=== PATIENT | female | born 1935 | race American Indian/Alaskan Native ===

== ENCOUNTER → 2016-09-01 | Outpatient (CLI) | payer MEDICARE, OTHER, BC ==
[2016-09-01 14:36] LABS: CHLORIDE,CL 110 mmol/L (98-110); SODIUM,NA 144 mmol/L (136-146)
== END | disposition home or self-care (01) ==
LOC: MW.CHFP 13:44
PROVIDERS: ATTEND Emergency Medicine
DX: I10 Essential (primary) hypertension (principal); R73.09 Other abnormal glucose; R73.03 Prediabetes; M26.629 Arthralgia of temporomandibular joint, unspecified side; E78.00 Pure hypercholesterolemia, unspecified
CPT/HCPCS: 36415; 80048; 83036; 99214

== ENCOUNTER 2017-06-01 18:19 | Emergency (ER) | payer MEDICARE, BC ==
--- NOTE | 2017-06-01 19:06 | EDM.PDOC ---
ED HPI GENERAL MEDICAL PROBLEM - General Chief Complaint: Headache Stated Complaint: PT HAS HEADACHE Time Seen by Provider: 06/01/17 19:04 Source of Information: Reports: Patient - History of Present Illness INITIAL COMMENTS - FREE TEXT/NARRATIVE: HISTORY AND PHYSICAL: History of present illness: [Patient presents with headache and fatigue increasing over the last week becoming more bothersome from the headache standpoint over the last few days she rates a 6 out of 10 and is in no distress no fever nausea vomiting chills sweats no chest pain shortness breath dizziness or palpitation] no bowel or urine symptoms Review of systems: As per history of present illness and below otherwise all systems reviewed and negative. Past medical history: As per history of present illness and as reviewed below otherwise noncontributory. Surgical history: As per history of present illness and as reviewed below otherwise noncontributory. Social history: No reported history of drug or alcohol abuse. Family history: As per history of present illness and as reviewed below otherwise noncontributory. Physical exam: HEENT: Atraumatic, normocephalic, pupils reactive, negative for conjunctival pallor or scleral icterus, mucous membranes moist, throat clear, neck supple, nontender, trachea midline. As tenderness right greater than left Lungs: Clear to auscultation, breath sounds equal bilaterally, chest nontender. Heart: S1S2, regular, negative for clicks, rubs, or JVD. Abdomen: Soft, nondistended, nontender. Negative for masses or hepatosplenomegaly. Negative for costovertebral tenderness. Pelvis: Stable nontender. Genitourinary: Deferred. Rectal: Deferred. Extremities: Atraumatic, negative for cords or calf pain. Neurovascular unremarkable. Neuro: Awake, alert, oriented. Cranial nerves II through XII unremarkable. Cerebellum unremarkable. Motor and sensory unremarkable throughout. Exam nonfocal. Diagnostics: [CBC CMP UA troponin EKG chest [address]] Therapeutics: [Normal saline to 50 mL bolus then I 125] cc per hour Rocephin 1 g IV Augmentin 875 by mouth twice a day #20 no refill [id number] symptomatic therapy discuss We will have patient follow with primary care to reevaluate in 2 weeks and look into the incidental CT findings below Impression: [Headache-improved to 2 out of 10 ]Sinusitis-maxillary and ethmoid Incidental intracranial lucent focus involving right frontal calvarium, radiology has concern of multiple myeloma or other malignancy Definitive disposition and diagnosis as appropriate pending reevaluation and review of above. headache Pain Score (Numeric/FACES): 7 - Related Data Allergies Allergy/AdvReac Type Severity Reaction Status Date / Time codeine Allergy Pain Verified 06/01/17 18:46 iodine Allergy Vomiting Verified 06/01/17 18:46 latex Allergy Itching Verified 06/01/17 18:46 morphine Allergy Pain Verified 06/01/17 18:46 Home Meds: Home Meds Aspirin [Ruddy Chewable] 81 mg PO DAILY 09/23/13 [History] Isosorbide Mononitrate [Imdur] 30 mg PO ACBRK 09/23/13 [History] Metoprolol Succinate 25 mg PO DAILY 09/23/13 [History] Nitroglycerin [Nitrostat] 0.4 mg SL ASDIRECTED PRN 09/23/13 [History] Rosuvastatin [Crestor] 10 mg PO DAILY 09/23/13 [History] Telmisartan [Micardis] 40 mg PO PCDIN 09/23/13 [History] Past Medical History Cardiovascular History: Reports: [place] Other Cardiovascular History: MIx4 Endocrine/Metabolic History: Reports: Diabetes, Type II - Past Surgical History Musculoskeletal Surgical History: Reports: Other (See Below) Other Musculoskeletal Surgeries/Procedures:: back surgery Social & Family History - Family History Family Medical History: Noncontributory - Tobacco Use Smoking Status *Q: Current Every Day Smoker Years of Tobacco use: 5 Packs/Tins Daily: 0.5 Second Hand Smoke Exposure: Yes - Alcohol Use Days Per Week of Alcohol Use: 0 Number of Drinks Per Day: 0 Total Drinks Per Week: 0 - Recreational Drug Use Recreational Drug Use: No Drug Use in Last 12 Months: No ED ROS GENERAL - Review of Systems Review Of Systems: ROS reveals no pertinent complaints other than HPI. ED EXAM, GENERAL - Physical Exam Exam: See Below Course - Vital Signs Last Recorded V/S: Last Vital Signs Temp 98.6 F 06/01/17 18:46 Pulse 80 06/01/17 18:46 Resp 20 06/01/17 18:46 BP 125/79 06/01/17 18:46 Pulse Ox 98 06/01/17 18:46 - Orders/Labs/Meds Orders: Active Orders 24 hr Category Date Time Status EKG 12 Lead [EKG Documentation Completion] [RC] STAT Care 06/01/17 19:02 Active Chest 1V Frontal [CR] Routine Exams 06/01/17 Taken Head wo Cont [CT] Stat Exams 06/01/17 19:02 Taken INFLUENZA A+B AG SCREEN [RM] Stat Lab 06/01/17 20:28 Ordered UA W/MICROSCOPIC [URIN] Stat Lab 06/01/17 19:02 Uncollected Sodium Chloride 0.9% [Normal Saline] 1,000 ml Med 06/01/17 19:15 Active IV STAT cefTRIAXone [Rocephin in Dextrose,Iso-Osm 1 GM/50 ML] 1 Med 06/01/17 20:31 Active gm Premix Bag 1 bag IV ONETIME Medication Orders Sodium Chloride (Normal Saline) 1,000 mls @ 125 mls/hr IV STAT VIJI Last Admin: 06/01/17 20:06 Dose: 125 mls/hr Ceftriaxone Sodium/Dextrose 1 (gm/ Premix) 50 mls @ 100 mls/hr IV ONETIME ONE Stop: 06/01/17 21:00 Labs: Laboratory Tests 06/01/17 06/01/17 Range/Units 19:13 19:13 WBC 5.34 (4.0-11.0) K/uL RBC 4.22 L (4.30-5.90) M/uL Hgb 12.4 (12.0-16.0) g/dL Hct 37.4 (36.0-46.0) % MCV 88.6 (80.0-98.0) fL MCH 29.4 (27.0-32.0) pg MCHC 33.2 (31.0-37.0) g/dL RDW Std Deviation 42.4 (28.0-62.0) fl RDW Coeff of Luis F 13 (11.0-15.0) % Plt Count 180 (150-400) K/uL MPV 9.50 (7.40-12.00) fL Neut % (Auto) 54.5 (48.0-80.0) % Lymph % (Auto) 32.2 (16.0-40.0) % Greenlee % (Auto) 10.9 (0.0-15.0) % Eos % (Auto) 1.7 (0.0-7.0) % Baso % (Auto) 0.7 (0.0-1.5) % Neut # (Auto) 2.9 (1.4-5.7) K/uL Lymph # (Auto) 1.7 (0.6-2.4) K/uL Greenlee # (Auto) 0.6 (0.0-0.8) K/uL Eos # (Auto) 0.1 (0.0-0.7) K/uL Baso # (Auto) 0.0 (0.0-0.1) K/uL Nucleated RBC % 0.0 /100WBC Nucleated RBCs # 0 K/uL Sodium 140 (136-146) mmol/L Potassium 3.8 (3.5-5.1) mmol/L Chloride 109 (98-110) mmol/L Carbon Dioxide 23 (21-31) mmol/L BUN 15 (6.0-23.0) mg/dL Creatinine 0.7 (0.6-1.5) mg/dL Est Cr Clr Drug Dosing 46.04 mL/min Estimated GFR (MDRD) > 60.0 ml/min Glucose 89 (60-110) mg/dL Calcium 8.7 L (8.8-10.8) mg/dL Total Bilirubin 0.6 (0.1-1.5) mg/dL AST 19 (5-40) IU/L ALT 12 (8-54) IU/L Alkaline Phosphatase 85 (40-150) Troponin I < 0.10 (0.0-0.29) NG/ML Total Protein 6.1 (6.0-8.0) g/dL Albumin 3.7 (3.4-4.8) g/dL Globulin 2.4 (2.0-3.5) g/dL Albumin/Globulin Ratio 1.5 (1.3-2.8) Meds: Medications Generic Name Dose Route Start Last Admin Trade Name Freq PRN Reason Stop Dose Admin Sodium Chloride 1,000 mls @ 125 mls/hr 06/01/17 19:15 06/01/17 20:06 Normal Saline IV 125 mls/hr STAT VIJI Administration Ceftriaxone Sodium/Dextrose 1 50 mls @ 100 mls/hr 06/01/17 20:31 gm/ Premix IV 06/01/17 21:00 ONETIME ONE Departure - Departure Time of Disposition: 20:40 Disposition: Home, Self-Care 01 Condition: Good Clinical Impression: Sinusitis - Discharge Information Referrals: PCP,None [Primary Care Provider] - Forms: ED Department Discharge Additional Instructions: Medication as prescribed Continue current home medications Cjjr-por-zvzyaow symptomatic therapy such as Claritin daily may benefit Nasacort 2 sprays daily may benefit Mucinex may benefit or Alley pot All of these modalities are available at [facility] or pharmacy outside of the prescription Augmentin Follow-up with primary care in 2 weeks for further management and look further into CT findings with Dr. foster The following information is given to patients seen in the emergency department who are being discharged to home. This information is to outline your options for follow-up care. We provide all patients seen in our emergency department with a follow-up referral. The need for follow-up, as well as the timing and circumstances, are variable depending upon the specifics of your emergency department visit. If you don't have a primary care physician on staff, we will provide you with a referral. We always advise you to contact your personal physician following an emergency department visit to inform them of the circumstance of the visit and for follow-up with them and/or the need for any referrals to a consulting specialist. The emergency department will also refer you to a specialist when appropriate. This referral assures that you have the opportunity for follow-up care with a specialist. All of these measure are taken in an effort to provide you with optimal care, which includes your follow-up. Under all circumstances we always encourage you to contact your private physician who remains a resource for coordinating your care. When calling for follow-up care, please make the office aware that this follow-up is from your recent emergency room visit. If for any reason you are refused follow-up, please contact the [facility] emergency department at and asked to speak to the emergency department charge nurse. - My Orders Last 24 Hours: My Active Orders 06/01/17 Chest 1V Frontal [CR] Routine 06/01/17 19:02 EKG 12 Lead [EKG Documentation Completion] [RC] STAT Head wo Cont [CT] Stat UA W/MICROSCOPIC [URIN] Stat 06/01/17 19:15 Sodium Chloride 0.9% [Normal Saline] 1,000 ml IV STAT 06/01/17 20:28 INFLUENZA A+B AG SCREEN [RM] Stat 06/01/17 20:31 cefTRIAXone [Rocephin in Dextrose,Iso-Osm 1 GM/50 ML] 1 gm Premix Bag 1 bag IV ONETIME - Assessment/Plan Last 24 Hours: My Active Orders 06/01/17 Chest 1V Frontal [CR] Routine 06/01/17 19:02 EKG 12 Lead [EKG Documentation Completion] [RC] STAT Head wo Cont [CT] Stat UA W/MICROSCOPIC [URIN] Stat 06/01/17 19:15 Sodium Chloride 0.9% [Normal Saline] 1,000 ml IV STAT 06/01/17 20:28 INFLUENZA A+B AG SCREEN [RM] Stat 06/01/17 20:31 cefTRIAXone [Rocephin in Dextrose,Iso-Osm 1 GM/50 ML] 1 gm Premix Bag 1 bag IV ONETIME
[2017-06-01] MEDS ORDERED: Sodium Chloride 0.9% 1,000 ML IV SCH (19:15)
[2017-06-01 19:49] LABS: CHLORIDE,CL 109 mmol/L (98-110); SODIUM,NA 140 mmol/L (136-146)
[2017-06-01] MEDS ORDERED: cefTRIAXone 1 GM in Premix Bag 1 BAG IV ONE (20:31)
[2017-06-01 21:35] VITALS: BP 189/83
--- NOTE | 2017-06-02 10:25 | CT ---
EXAM DATE: 06/01/17 PATIENT'S AGE: 81 Patient: JODI DAVIES Facility: [place], [place] Site . Site : 1935 Study: CT Head [id number]/5/2018 7:54:40 PM Ordering Physician: Cary Churchill Final Report: INDICATION: Headache. 81-year-old female. TECHNIQUE: CT Head without i.v. contrast. COMPARISON: None FINDINGS: CSF spaces: Within normal limits for age. Brain parenchyma: Mild diffuse cortical atrophy is noted. There are low attenuation white matter changes, likely due to chronic microvascular disease. The brain parenchyma is normal in appearance with preservation of the damon- white matter junction. No sign of mass, hemorrhage, or midline shift seen. Skull base and calvarium: The right frontal sinus is completely opacified. Right ethmoid and mild degree of bilateral maxillary sinus mucosal thickening. No fracture of the calvarium. Trace posterior right mastoid effusion. Indeterminate lucent focus involving the right frontal calvarium on series 202, image 38. IMPRESSION: 1. Extensive right frontal sinus disease with mild-moderate degree of ethmoid and maxillary sinus disease. 2. Trace posterior right mastoid effusion. 3. No acute intracranial hemorrhage or mass effect. 4. Indeterminate lucent focus involving the right frontal calvarium, series 2 at 2 image 38. Scattered additional small lucent foci. Findings are indeterminate. Correlate with any clinical findings of possible multiple myeloma or other malignancy as source of scattered lucent foci of the calvarium. Correlation with any prior head CT or MRI studies would be helpful, if available. Dictated by Elias Kamara MD @ 06/01/2017 8:24:21 PM Dictated by: Elias Kamara MD @ 06/01/2017 20:24:31 (Electronic Signature) Report Signed by Proxy. [facility] MED[facility] CENTERBrittany
--- NOTE | 2017-06-02 10:29 | CR ---
EXAM DATE: 06/01/17 PATIENT'S AGE: 81 Patient: JODI DAVIES Facility: [place], [place] Site . Site : 1935 Study: XRay Chest [id number]/5/2018 7:55:02 PM Ordering Physician: Cary Churchill Final Report: INDICATION: CP and LI TECHNIQUE: Chest 1 view. COMPARISON: 04/20/10 FINDINGS: Cardiovascular and mediastinum: Heart size and vasculature are normal in caliber and appearance. Mediastinum is within normal limits. Lungs and pleural space: Lungs are clear. No sign of infiltrate or mass. No sign of pleural effusion. No pneumothorax. Bones and soft tissues: No significant findings. IMPRESSION: Unremarkable chest. Dictated by: Gilmer Astorga MD @ 06/01/2017 20:19:52 (Electronic Signature) Report Signed by Proxy. [facility] CENTERBrittany
== END 2017-06-01 21:32 | disposition home or self-care (01) ==
LOC: MW.ED 18:19
DX: J32.9 Chronic sinusitis, unspecified (principal); E11.9 Type 2 diabetes mellitus without complications; I25.2 Old myocardial infarction; F17.210 Nicotine dependence, cigarettes, uncomplicated; Z88.5 Allergy status to narcotic agent; Z91.040 Latex allergy status; Z79.82 Long term (current) use of aspirin; Z79.899 Other long term (current) drug therapy
CPT/HCPCS: 36415; 70450; 71045; 80053; 81001; 84484; 85025; 87804; 93005; 96361; 96365; 99284; J0696; J7040; 99282

== ENCOUNTER 2018-01-20 15:20 | Emergency (ER) | payer MEDICARE, BC ==
--- NOTE | 2018-01-20 15:38 | EDM.PDOC ---
ED HPI GENERAL MEDICAL PROBLEM - General Chief Complaint: Skin Complaint Stated Complaint: RT ARM SWOLLEN Time Seen by Provider: 01/20/18 15:37 Source of Information: Reports: Patient History Limitations: Reports: No Limitations - History of Present Illness INITIAL COMMENTS - FREE TEXT/NARRATIVE: HISTORY AND PHYSICAL: History of present illness: She states 3 years ago she had blood drawn from the right wrist and "they went through muscle bone and nerve". Since that time she has had chronic pain to the right wrist. She had surgery in [place] for this 3 years ago, but doesn't recall what it was. She states that she has worsening pain whenever she bumps her hits her hand/wrist. Denies being on any blood thinners. No recent trauma, falls or injury. Denies any numbness or tingling to the affected extremity. Denies any fever, chills, chest pain or shortness of breath/cough. Denies any GI or symptoms. Review of systems: As per history of present illness and below otherwise all systems reviewed and negative. Past medical history: As per history of present illness and as reviewed below otherwise noncontributory. Surgical history: As per history of present illness and as reviewed below otherwise noncontributory. Social history: No reported history of drug or alcohol abuse. Family history: As per history of present illness and as reviewed below otherwise noncontributory. Physical exam: General: Well-developed and well-nourished 82-year-old female. Alert and oriented. Nontoxic appearing and in no acute distress. HEENT: Atraumatic, normocephalic, pupils equal and reactive bilaterally, negative for conjunctival pallor or scleral icterus, mucous membranes moist, throat clear, neck supple, nontender, trachea midline. No drooling or trismus noted. No meningeal signs Lungs: Clear to auscultation, breath sounds equal bilaterally, chest nontender. Heart: S1S2, regular rate and rhythm without overt murmur Abdomen: Soft, nondistended, nontender. Negative for masses or hepatosplenomegaly. Negative for costovertebral tenderness. Pelvis: Stable nontender. Genitourinary: Deferred. Rectal: Deferred. Skin: Bruising noted to the right radial wrist (size of softball). Mild soft tissue welling to the area. Otherwise skin is intact, warm, dry. No lesions or rashes noted. Extremities: Bruising noted to right radial wrist, strong radial pulse, cap refill less than 3 seconds. Has pain with flexion and extension (near the end of the movement). +CMS. Denies any numbness or tingling. She is negative for cords or calf pain. Neurovascular unremarkable. Neuro: Awake, alert, oriented. Cranial nerves II through XII unremarkable. Cerebellum unremarkable. Motor and sensory unremarkable throughout. Exam nonfocal. Notes: X-ray shows soft tissue swelling. No fracture or dislocation. Placed her in a wrist splint for comfort. She states she does have a follow-up appointment at [place]. Encouraged her to see either her primary or the orthopedic provider in the next couple days. She voices understanding and is agreeable to plan of care. Denies any further questions or concerns at this time. Diagnostics: X-ray Therapeutics: Wrist Splint Impression: Contusion, right wrist Plan: 1. Rest, Ice, and Elevate the afffected extremity. 2. You may use over the counter Tylenol as needed for pain. 3. Follow up with the orthopedic provider or Dr Heart in the next 1-2 days. Return to the ED as needed and as discussed. Definitive disposition and diagnosis as appropriate pending reevaluation and review of above. Right Wrist Pain Score (Numeric/FACES): 9 - Related Data Allergies Allergy/AdvReac Type Severity Reaction Status Date / Time codeine Allergy Pain Verified 06/01/17 18:46 iodine Allergy Vomiting Verified 06/01/17 18:46 latex Allergy Itching Verified 06/01/17 18:46 morphine Allergy Pain Verified 06/01/17 18:46 Home Meds: Home Meds Aspirin [Ruddy Chewable] 81 mg PO DAILY 09/23/13 [History] Isosorbide Mononitrate [Imdur] 30 mg PO ACBRK 09/23/13 [History] Metoprolol Succinate 25 mg PO DAILY 09/23/13 [History] Nitroglycerin [Nitrostat] 0.4 mg SL ASDIRECTED PRN 09/23/13 [History] Rosuvastatin [Crestor] 10 mg PO DAILY 09/23/13 [History] Telmisartan [Micardis] 40 mg PO PCDIN 09/23/13 [History] Past Medical History Cardiovascular History: Reports: [place] Other Cardiovascular History: MIx4 Endocrine/Metabolic History: Reports: Diabetes, Type II - Past Surgical History Musculoskeletal Surgical History: Reports: Other (See Below) Other Musculoskeletal Surgeries/Procedures:: back surgery Social & Family History - Family History Family Medical History: Noncontributory ED ROS GENERAL - Review of Systems Review Of Systems: ROS reveals no pertinent complaints other than HPI. ED EXAM, SKIN/RASH Exam: See Below (See dictation) Course - Vital Signs Last Recorded V/S: Last Vital Signs Temp 97.5 F 01/20/18 15:37 Pulse 81 01/20/18 15:37 Resp 18 01/20/18 15:37 BP 97/51 L 01/20/18 15:37 Pulse Ox 98 01/20/18 15:37 - Orders/Labs/Meds Orders: Active Orders 24 hr Category Date Time Status Wrist 2V Rt [CR] Stat Exams 01/20/18 16:01 Ordered DME for Discharge [COMM] Stat Oth 01/20/18 16:28 Ordered Departure - Departure Time of Disposition: 17:18 Disposition: Home, Self-Care 01 Clinical Impression: Wrist contusion Qualifiers: Encounter type: initial encounter Laterality: right Qualified Code(s): S60.211A - Contusion of right wrist, initial encounter - Discharge Information Instructions: Contusion, [id number] Referrals: PCP,None [Primary Care Provider] - Forms: ED Department Discharge Additional Instructions: The following information is given to patients seen in the emergency department who are being discharged to home. This information is to outline your options for follow-up care. We provide all patients seen in our emergency department with a follow-up referral. The need for follow-up, as well as the timing and circumstances, are variable depending upon the specifics of your emergency department visit. If you don't have a primary care physician on staff, we will provide you with a referral. We always advise you to contact your personal physician following an emergency department visit to inform them of the circumstance of the visit and for follow-up with them and/or the need for any referrals to a consulting specialist. The emergency department will also refer you to a specialist when appropriate. This referral assures that you have the opportunity for follow-up care with a specialist. All of these measure are taken in an effort to provide you with optimal care, which includes your follow-up. Under all circumstances we always encourage you to contact your private physician who remains a resource for coordinating your care. When calling for follow-up care, please make the office aware that this follow-up is from your recent emergency room visit. If for any reason you are refused follow-up, please contact the [facility] Emergency Department at and asked to speak to the emergency department charge nurse. [facility] Primary Care [address] [place] [address] [facility] ([facility]) [address] [place] [address] Phone: [phone] 1. Rest, Ice, and Elevate the affected extremity. 2. You may use over the counter Tylenol as needed for pain. 3. Follow up with the orthopedic provider or Dr Heart in the next 1-2 days. Return to the ED as needed and as discussed. - My Orders Last 24 Hours: My Active Orders 01/20/18 16:01 Wrist 2V Rt [CR] Stat 01/20/18 16:28 DME for Discharge [COMM] Stat - Assessment/Plan Last 24 Hours: My Active Orders 01/20/18 16:01 Wrist 2V Rt [CR] Stat 01/20/18 16:28 DME for Discharge [COMM] Stat
[2018-01-20 17:40] VITALS: BP 143/68
--- NOTE | 2018-01-21 10:18 | CR ---
EXAM DATE: 01/20/18 PATIENT'S AGE: 82 Patient: JODI DAVIES Facility: [place], [place] Site . Site : 1935 Study: XRay Extremity Right wrist [id number]/26/2018 4:40:06 PM Ordering Physician: Doctor Martinez Final Report: INDICATION: Swelling and redness. History of trauma. COMPARISON: 09/08/2014 TECHNIQUE: AP, lateral, and oblique views of the right wrist are obtained for a total of three views. FINDINGS: There is no sign of fracture or dislocation. The bones of the carpus are in anatomic alignment. Again seen is mild sclerosis of the proximal portion of the lunate, suggesting Kienbock`s disease, avascular necrosis of the lunate. Again seen is mild primary osteoarthritis of the 1st CMC joint and of the triscaphe region at the base of the thumb. There continues to be mild sclerosis of the articular surfaces at the radiocarpal articulation from additional mild primary osteoarthritis. Small rounded radiodensities have developed along the radial aspect of the wrist , along with mild diffuse soft tissue swelling. These may be phleboliths resulting from venous engorgement. No gas is seen in the soft tissues to suggest an abscess. There is no sign of any radiopaque foreign bodies. IMPRESSION: SWELLING OF THE RADIAL ASPECT OF THE WRIST WITH SMALL ROUNDED CALCIFICATIONS, POSSIBLY DEVELOPING PHLEBOLITHS. NO SIGN OF ANY GAS IN THE SOFT TISSUES OR RADIOPAQUE FOREIGN BODY. 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 Dictated by Madhav Evans MD @ Jan 20 2018 4:54PM (Electronic Signature) Report Signed by Proxy. [facility]
== END 2018-01-20 17:28 | disposition home or self-care (01) ==
LOC: MW.ED 15:20
DX: S60.211A Contusion of right wrist, initial encounter (principal); E11.9 Type 2 diabetes mellitus without complications; F17.210 Nicotine dependence, cigarettes, uncomplicated; Z88.5 Allergy status to narcotic agent; Z91.040 Latex allergy status; Z79.82 Long term (current) use of aspirin; Z79.899 Other long term (current) drug therapy; X58.XXXA Exposure to other specified factors, initial encounter
CPT/HCPCS: 73100-26-RT; 73100-RT; 99283